=== PATIENT | male | born 1935 | race Caucasian/White ===

== ENCOUNTER 2018-06-01 18:02 | Emergency (ER) | payer MEDICARE, OTHER ==
[2018-06-01 18:14] VITALS: BP 147/74
--- NOTE | 2018-06-01 18:47 | EDM.PDOC ---
ED HPI GENERAL MEDICAL PROBLEM - General Chief Complaint: ENT Problem Stated Complaint: INFECTION IN MOUTH/EYES Time Seen by Provider: 06/01/18 18:47 Source of Information: Reports: Patient, Family (son) History Limitations: Reports: No Limitations - History of Present Illness INITIAL COMMENTS - FREE TEXT/NARRATIVE: 83-year-old male presents with his son for evaluation and treatment of a sore throat. Patient is very hard of hearing, history primarily obtained from his son. Reports the symptoms have been going on for about the last 3-4 days. Presented to the walk in clinic Saturday. Prescribed clindamycin and nystatin. Has been taking this as prescribed but symptoms seem to be Worsening. Reports the symptoms initially started with a white spot to the throat. This area has increased in size. He is now experiencing pain to the throat. He is also complaining of pain and swelling to the right cheek extending behind his right ear and under his right eye. He has bilateral increased tear production and purulent discharge from the eyes with mattering to the lids. He reports associated symptoms of a headache and a decreased appetite. He also reports chills and malaise. No documented fever. He denies any cough, nausea or vomiting. Patient is not a diabetic. Duration: Day(s): (3-4) Location: Reports: Face Right Face Pain Score (Numeric/FACES): 8 - Related Data Allergies Allergy/AdvReac Type Severity Reaction Status Date / Time Iodinated Contrast- Oral and Allergy Hives Verified 06/01/18 18:20 IV Dye Penicillins Allergy Rash Verified 06/01/18 18:20 Home Meds: Home Meds Aspirin [Children's Aspirin] 1 tab PO DAILY 11/15/16 [History] Bisoprolol Fumarate/HCTZ [Bisoprolol-Hctz 5-6.25 mg Tab] 1 tab PO DAILY [History] Cholecalciferol (Vitamin D3) [Vitamin D] 1 tab PO DAILY 11/15/16 [History] Furosemide 1 tab PO DAILY 11/15/16 [History] Multivitamin [Multivitamins] 1 tab PO DAILY 11/15/16 [History] Psyllium Husk (With Sugar) [Metamucil Powder] 1 dose PO TID PRN 11/15/16 [ History] Tamsulosin HCl 1 cap PO DAILY 02/16/17 [History] Triamcinolone Acetonide [Triamcinolone Acetonide 0.1% Crm] 1 applic TOP BID PRN 11/15/16 [History] Lidocaine 2% [Xylocaine 2% Viscous] 15 ml .XX Q4HR PRN #300 ml 06/01/18 [Rx] valACYclovir [Valtrex] 1,000 mg PO Q8HR #26 tablet 06/01/18 [Rx] Past Medical History HEENT History: Reports: Hard of Hearing, Other (See Below) Other HEENT History: brain aneursym Cardiovascular History: Reports: Hypertension Other Cardiovascular History: water retention Respiratory History: Reports: None Gastrointestinal History: Reports: Cholelithiasis, Other (See Below) Other Gastrointestinal History: Hepatitis A, gallstone Genitourinary History: Reports: Prostate Disorder 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 Musculoskeletal History: Reports: Osteoarthritis, Other (See Below) Other Musculoskeletal History: knee pain Neurological History: Reports: None Psychiatric History: Reports: None Endocrine/Metabolic History: Reports: Obesity/BMI 30+, Other (See Below) Other Endocrine/Metabolic History: knee replacements bilateral, hand surgery Hematologic History: Reports: None Immunologic History: Reports: None Oncologic (Cancer) History: Reports: Prostate Dermatologic History: Reports: None - Past Surgical History GI Surgical History: Reports: Cholecystectomy, Colonoscopy, Hernia, Inguinal Musculoskeletal Surgical History: Reports: Knee Replacement, Other (See Below) Social & Family History - Tobacco Use Used Tobacco, but Quit: Yes Month/Year Tobacco Last Used: 1991 - Caffeine Use Caffeine Use: Reports: Coffee, Soda, Tea - Recreational Drug Use Recreational Drug Use: No ED ROS ENT - Review of Systems Review Of Systems: See Below Constitutional: Reports: Chills, Malaise, Decreased Appetite HEENT: Reports: Eye Discharge (bilateral), Throat Pain Respiratory: Denies: Cough Cardiovascular: Denies: Chest Pain GI/Abdominal: Reports: Decreased Appetite. Denies: Abdominal Pain, Nausea, Vomiting ED EXAM, ENT - Physical Exam Exam: See Below Exam Limited By: No Limitations General Appearance: Alert, WD/WN, No Apparent Distress Eye Exam: Right Eye: Periorbital Changes (swelling and erythema to the right lower lid), Bilateral Eye: EOMI, Normal Inspection, PERRL Ears: Normal External Exam, Normal Canal, Hearing Grossly Normal, Normal TMs Nose: Normal Inspection Mouth/Throat: Other (lesions to the right posterior oropharynx, is not easliy removable with the tongue blade, erythematous border with white/grap center) Head: Facial Tenderness (right face, zygomatic process) Neck: Normal Inspection. No: Lymphadenopathy (L), Lymphadenopathy (R) Respiratory/Chest: No Respiratory Distress, Lungs Clear, Normal Breath Sounds Cardiovascular: Regular Rate, Rhythm, Systolic Murmur (grade 3 systolice heart murmur) GI/Abdominal: Soft, Non-Tender Neurological: Alert, Oriented, Normal Cognition Psychiatric: Normal Affect, Normal Mood Skin: Warm, Dry, Normal Color, Erythema (right cheek ), Other (no lesions to the right face appreciated) ED EYE PROCEDURE - Eye Procedure Alcaine Drops Administered: Yes Course - Vital Signs Last Recorded V/S: Last Vital Signs Temp 98.0 F 06/01/18 18:13 Pulse 77 06/01/18 18:13 Resp 20 06/01/18 18:13 BP 147/74 H 06/01/18 18:13 Pulse Ox 96 06/01/18 18:13 - Orders/Labs/Meds Orders: Active Orders 24 hr Category Date Time Status Slit Lamp to Bedside [RC] ASDIRECTED Care 06/01/18 19:50 Active Labs: Laboratory Tests 06/01/18 06/01/18 Range/Units 19:20 19:20 WBC 5.55 (4.23-9.07) K/mm3 RBC 4.13 L (4.63-6.08) M/mm3 Hgb 13.4 L (13.7-17.5) gm/L Hct 40.7 (40.1-51.0) % MCV 98.5 H (79.0-92.2) fl MCH 32.4 H (25.7-32.2) pg MCHC 32.9 (32.2-35.5) g/dl RDW Std Deviation 47.5 H (35.1-43.9) fL Plt Count 205 (163-337) K/mm3 MPV 11.3 (9.4-12.3) fl Neutrophils % (Manual) 75 H (40-60) % Band Neutrophils % 0 (0-10) % Lymphocytes % (Manual) 23 (20-40) % Atypical Lymphs % 0 % Monocytes % (Manual) 1 L (2-10) % Eosinophils % (Manual) 1 (0.8-7.0) % Basophils % (Manual) 0 L (0.2-1.2) Platelet Estimate Adequate RBC Morph Comment Normal Sodium 140 (136-145) mEq/L Potassium 3.6 (3.5-5.1) mEq/L Chloride 106 (98-107) mEq/L Carbon Dioxide 27 (21-32) mEq/L Anion Gap 10.6 (5-15) BUN 18 (7-18) mg/dL Creatinine 1.4 H (0.7-1.3) mg/dL Est Cr Clr Drug Dosing 44.85 mL/min Estimated GFR (MDRD) 48 (>60) mL/min BUN/Creatinine Ratio 12.9 L (14-18) Glucose 107 (83-115) mg/dL Calcium 8.7 (8.5-10.1) mg/dL Total Bilirubin 0.5 (0.2-1.0) mg/dL AST 18 (15-37) U/L ALT 17 (16-63) U/L Alkaline Phosphatase 96 (46-116) U/L C-Reactive Protein 1.1 H* (<1.0) mg/dL Total Protein 6.8 (6.4-8.2) g/dl Albumin 3.5 (3.4-5.0) g/dl Globulin 3.3 gm/dL Albumin/Globulin Ratio 1.1 (1-2) Meds: Medications Discontinued Medications Generic Name Dose Route Start Last Admin Trade Name Freq PRN Reason Stop Dose Admin Fluorescein Sodium 0.6 mg 06/01/18 20:03 06/01/18 20:23 Ful-Brunilda EYEBOTH 06/01/18 20:04 0.6 mg ONETIME ONE Administration Polymyxin/Trimethoprim Sulfate 1 ml 06/01/18 20:57 06/01/18 21:20 Polytrim Ophth Soln EYEBOTH 06/01/18 20:58 Not Given ONETIME ONE Valacyclovir HCl 1,000 mg 06/01/18 21:00 06/01/18 21:20 Valtrex PO Not Given DAILY BRYAN Valacyclovir HCl 1,000 mg 06/01/18 21:00 06/01/18 21:20 Valtrex PO Not Given DAILY BRYAN Valacyclovir HCl Confirm 06/01/18 21:16 06/01/18 21:19 Valtrex Administered 06/01/18 21:17 Not Given Dose 2,000 mg .ROUTE .STK-MED ONE Valacyclovir HCl 1,000 mg 06/01/18 21:19 06/01/18 21:22 Valtrex PO 1,000 mg DAILY BRYAN Administration Valacyclovir HCl 1,000 mg 06/01/18 21:18 06/01/18 21:22 Valtrex PO 06/01/18 21:19 1,000 mg ONETIME ONE Administration - Re-Assessments/Exams Free Text/Narrative Re-Assessment/Exam: 06/01/18 20:[address] Manzanares to see the patient. Agrees this is consistent with shingles. I reviewed the labs with the patient. No imaging indicated today. Slit lamp exam reveals no lesions in the eyes. Negative Hutchington's sign. Will discharge home with lidocaine for pain relief. Valtrex for the shingles and polytrim for suspected conjunctivitis. Close follow-up in the clinic. Discharge instructions as documented. Departure - Departure Time of Disposition: 20:45 Disposition: Home, Self-Care 01 Condition: Fair Clinical Impression: Shingles - Discharge Information *PRESCRIPTION DRUG MONITORING PROGRAM REVIEWED*: No *COPY OF PRESCRIPTION DRUG MONITORING REPORT IN PATIENT MARSHALL: No Prescriptions: Lidocaine 2% [Xylocaine 2% Viscous] 15 ml .XX Q4HR PRN #300 ml PRN Reason: Pain valACYclovir [Valtrex] 1,000 mg PO Q8HR #26 tablet Instructions: Shingles, [id number] Referrals: Froylan Pino MD [Primary Care Provider] - Forms: ED Department Discharge Additional Instructions: You may stop the clindamycin and the nystatin prescribed by the clinic. [facility] ( in [place]) is open 1pm to 3pm tomorrow. Start the valtrex 1 cap PO tid x 7 days. Start the polytrim eye drops to the bilateral eyes tid x 7 days. OTC tylenol or motrin as needed for pain. Mouthwash (lidocaine) 15mls every 4-6 hours prn pain. Gargle, swallow or spit. Follow-up with your PCP this week and you eye doctor this week. Please let them know you were seen in the ED this weekend and were diagnosed with shingles. Please let them know the shingles is on your face and close follow-up in the clinic and with your eye doctor this week is recommended. Make sure you are drinking plenty of fluids and eating a healthy diet. Please return to the ER should your symptoms change or worsen. - My Orders Last 24 Hours: My Active Orders 06/01/18 19:50 Slit Lamp to Bedside [RC] ASDIRECTED - Assessment/Plan Last 24 Hours: My Active Orders 06/01/18 19:50 Slit Lamp to Bedside [RC] ASDIRECTED
[2018-06-01] MEDS ORDERED: Fluorescein 0.6 MG Ophth Strip EYEBOTH ONE (20:03)
[2018-06-01] MEDS ORDERED: Polymyxin B/Trimethoprim 10 ML Bottle EYEBOTH ONE (20:57)
[2018-06-01] MEDS ORDERED: valACYclovir 1,000 MG Tab PO SCH ×2 (21:00)
[2018-06-01] MEDS ORDERED: valACYclovir 500 MG Tab ONE (21:16)
[2018-06-01] MEDS ORDERED: valACYclovir 500 MG Tab PO ONE (21:18)
[2018-06-01] MEDS ORDERED: valACYclovir 500 MG Tab PO SCH (21:19)
== END 2018-06-01 21:25 | disposition home or self-care (01) ==
LOC: JD.ED 18:02
DX: B02.9 Zoster without complications (principal); I10 Essential (primary) hypertension; Z88.0 Allergy status to penicillin; Z87.891 Personal history of nicotine dependence
CPT/HCPCS: 36415; 80053; 85007; 85027; 86140; 99283; A9270

== ENCOUNTER 2020-01-11 16:03 | Emergency (ER) | payer MEDICARE, OTHER ==
--- NOTE | 2020-01-11 16:50 | EDM.PDOC ---
ED HPI GENERAL MEDICAL PROBLEM - General Chief Complaint: Skin Complaint Stated Complaint: HAND PAIN Time Seen by Provider: 01/11/20 16:05 Source of Information: Reports: Patient History Limitations: Reports: No Limitations - History of Present Illness INITIAL COMMENTS - FREE TEXT/NARRATIVE: Patient is an 84-year-old male who presents to the ER with complaints of right hand redness, pain, and swelling. He states it began "out of nowhere "about 3 days ago. He states he has been taking ibuprofen intermittently for the pain. He has not had any fever, chills, nausea, or vomiting associated with this. He denies a known history of gout. Denies any open wounds to the area, however states he was sick with a "cold "about a week ago and he thinks it may be associated with that. 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 Left Hand Pain Score (Numeric/FACES): 10 - Related Data Allergies Allergy/AdvReac Type Severity Reaction Status Date / Time Iodinated Contrast Media Allergy Hives Verified 01/11/20 16:19 [Iodinated Contrast- Oral and IV Dye] Penicillins Allergy Rash Verified 01/11/20 16:19 Home Meds: Home Meds Aspirin [Children's Aspirin] 1 tab PO DAILY 11/15/16 [History] Bisoprolol/Hydrochlorothiazide [Bisoprolol-Hctz 5-6.25 mg Tab] 1 tab PO DAILY [History] Cholecalciferol (Vitamin D3) [Vitamin D] 1 tab PO DAILY 11/15/16 [History] Furosemide 1 tab PO DAILY 11/15/16 [History] Multivitamin [Multivitamins] 1 tab PO DAILY 11/15/16 [History] Psyllium Husk (With Sugar) [Metamucil Powder] 1 dose PO TID PRN 11/15/16 [ History] Tamsulosin HCl 1 cap PO DAILY 11/15/16 [History] Triamcinolone Acetonide [Triamcinolone Acetonide 0.1% Crm] 1 applic TOP BID PRN 11/15/16 [History] Lidocaine 2% [Xylocaine 2% Viscous] 15 ml .XX Q4HR PRN #300 ml 06/01/18 [Rx] valACYclovir [Valtrex] 1,000 mg PO Q8HR #26 tablet 06/01/18 [Rx] cephALEXin [Keflex] 500 mg PO Q6H #19 cap 01/11/20 [Rx] predniSONE [Prednisone] 20 mg PO BID 5 Days #9 tablet 01/11/20 [Rx] Past Medical History HEENT History: Reports: Hard of Hearing, Other (See Below) Other HEENT History: brain aneursym Cardiovascular History: Reports: Hypertension Other Cardiovascular History: water retention Respiratory History: Reports: None Gastrointestinal History: Reports: Cholelithiasis, Other (See Below) Other Gastrointestinal History: Hepatitis A, gallstone Genitourinary History: Reports: Prostate Disorder 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 Musculoskeletal History: Reports: Osteoarthritis, Other (See Below) Other Musculoskeletal History: knee pain Neurological History: Reports: None Psychiatric History: Reports: None Endocrine/Metabolic History: Reports: Obesity/BMI 30+, Other (See Below) Other Endocrine/Metabolic History: knee replacements bilateral, hand surgery Hematologic History: Reports: None Immunologic History: Reports: None Oncologic (Cancer) History: Reports: Prostate Dermatologic History: Reports: None - Past Surgical History GI Surgical History: Reports: Cholecystectomy, Colonoscopy, Hernia, Inguinal Musculoskeletal Surgical History: Reports: Knee Replacement, Other (See Below) Social & Family History - Tobacco Use Smoking Status *Q: Never Smoker - Caffeine Use Caffeine Use: Reports: Soda - Recreational Drug Use Recreational Drug Use: No ED ROS GENERAL - Review of Systems Review Of Systems: See Below Constitutional: Reports: No Symptoms. Denies: Fever, Chills, Weakness HEENT: Reports: No Symptoms Respiratory: Reports: No Symptoms Cardiovascular: Reports: No Symptoms Endocrine: Reports: No Symptoms GI/Abdominal: Reports: No Symptoms. Denies: Nausea, Vomiting : Reports: No Symptoms Musculoskeletal: Reports: No Symptoms Skin: Reports: Erythema Neurological: Reports: No Symptoms. Denies: Confusion, Dizziness Psychiatric: Reports: No Symptoms Hematologic/Lymphatic: Reports: No Symptoms Immunologic: Reports: No Symptoms ED EXAM, SKIN/RASH Exam: See Below Exam Limited By: No Limitations General Appearance: Alert, WD/WN, No Apparent Distress Respiratory/Chest: No Respiratory Distress, Lungs Clear, Normal Breath Sounds, No Accessory Muscle Use, Chest Non-Tender Cardiovascular: Normal Peripheral Pulses, Regular Rate, Rhythm, No Edema, No Gallop, No JVD, No Murmur, No Rub Skin: Other (Erythema/edema/warmth to the dorsal aspect of the left hand. ) Course - Vital Signs Last Recorded V/S: Last Vital Signs Temp 97.5 F 01/11/20 16:13 Pulse 80 01/11/20 16:13 Resp 22 H 01/11/20 16:13 BP 145/68 H 01/11/20 16:13 Pulse Ox 97 01/11/20 16:13 - Orders/Labs/Meds Labs: Laboratory Tests 01/11/20 01/11/20 01/11/20 Range/Units 16:41 16:41 16:41 WBC 9.88 H (4.23-9.07) K/mm3 RBC 3.87 L (4.63-6.08) M/mm3 Hgb 12.3 L (13.7-17.5) gm/dl Hct 37.8 L (40.1-51.0) % MCV 97.7 H (79.0-92.2) fl MCH 31.8 (25.7-32.2) pg MCHC 32.5 (32.2-35.5) g/dl RDW Std Deviation 45.7 H (35.1-43.9) fL Plt Count 267 (163-337) K/mm3 MPV 12.3 (9.4-12.3) fl Neut % (Auto) 81.4 H (34.0-67.9) % Lymph % (Auto) 8.6 L (21.8-53.1) % [place] % (Auto) 8.9 (5.3-12.2) % Eos % (Auto) 0.5 L (0.8-7.0) Baso % (Auto) 0.3 (0.1-1.2) % Neut # (Auto) 8.04 H (1.78-5.38) K/mm3 Lymph # (Auto) 0.85 L (1.32-3.57) K/mm3 [place] # (Auto) 0.88 H (0.30-0.82) K/mm3 Eos # (Auto) 0.05 (0.04-0.54) K/mm3 Baso # (Auto) 0.03 (0.01-0.08) K/mm3 Manual Slide Review Abnormal smear Sodium 137 (136-145) mEq/L Potassium 3.1 L (3.5-5.1) mEq/L Chloride 102 (98-107) mEq/L Carbon Dioxide 23 (21-32) mEq/L Anion Gap 15.1 H (5-15) BUN 17 (7-18) mg/dL Creatinine 1.2 (0.7-1.3) mg/dL Est Cr Clr Drug Dosing 47.06 mL/min Estimated GFR (MDRD) 57 (>60) mL/min BUN/Creatinine Ratio 14.2 (14-18) Glucose 137 H (83-115) mg/dL Uric Acid 3.2 L (3.5-7.2) mg/dL Calcium 9.2 (8.5-10.1) mg/dL Total Bilirubin 0.3 (0.2-1.0) mg/dL AST 16 (15-37) U/L ALT 19 (16-63) U/L Alkaline Phosphatase 79 (46-116) U/L C-Reactive Protein 9.6 H* (<1.0) mg/dL Total Protein 7.0 (6.4-8.2) g/dl Albumin 3.2 L (3.4-5.0) g/dl Globulin 3.8 gm/dL Albumin/Globulin Ratio 0.8 L (1-2) Meds: Medications Discontinued Medications Generic Name Dose Route Start Last Admin Trade Name Freq PRN Reason Stop Dose Admin Acetaminophen 975 mg 01/11/20 17:42 01/11/20 17:57 Tylenol PO 01/11/20 17:43 975 mg NOW ONE Administration Cephalexin 500 mg 01/11/20 17:47 01/11/20 17:57 Keflex PO 01/11/20 17:48 500 mg ONETIME ONE Administration Prednisone 20 mg 01/11/20 17:42 01/11/20 17:57 Prednisone PO 01/11/20 17:43 20 mg ONETIME ONE Administration - Re-Assessments/Exams Free Text/Narrative Re-Assessment/Exam: 01/11/20 18:08 Hematology shows a slightly elevated WBC at 9.88, CRP slightly elevated at 9.6, uric acid low at 3.2. X-ray of the hand shows some soft tissue swelling and degenerative changes. Patient has been afebrile and denies any nausea, vomiting , or chills. Differential diagnoses is gout versus cellulitis. The extremity does have the appearance of gout, however patient has no history of gout. He does have a history of cellulitis. Based on this, I am going to cover him for cellulitis with Keflex, as well as start prednisone. Discussed with the patient that I would like him to follow-up in the clinic in 2 to 3 days to monitor the symptoms. The area of erythema was marked with a skin marker. The patient also has a picture of the hand on his phone to monitor for improvement or worsening symptoms. Discussed that if he finds it is getting worse instead of better I would want him to return to the emergency department. He is in agreement with this plan. I did speak with the patient's son, Jurgen, and explained this plan. He verbalized understanding and is in agreement with the plan as well. Discharge instructions as documented. Departure - Departure Time of Disposition: 17:57 Disposition: Home, Self-Care 01 Condition: Fair Clinical Impression: Hand pain, left Cellulitis Qualifiers: Site of cellulitis: extremity Site of cellulitis of extremity: upper extremity Laterality: left Qualified Code(s): L03.114 - Cellulitis of left upper limb - Discharge Information *PRESCRIPTION DRUG MONITORING PROGRAM REVIEWED*: No *COPY OF PRESCRIPTION DRUG MONITORING REPORT IN PATIENT MARSHALL: No Prescriptions: cephALEXin [Keflex] 500 mg PO Q6H #19 cap predniSONE [Prednisone] 20 mg PO BID 5 Days #9 tablet Instructions: Cellulitis, Adult Referrals: Cara Curry NP [Primary Care Provider] - Froylan Pino MD [Physician] - Forms: ED Department Discharge Additional Instructions: You were seen in the emergency department today for left hand pain and swelling that began about 3 days ago. Your work-up included blood work and an x-ray of your left hand. Your work-up was overall normal. As we discussed, there is a possibility that this could be related to gout, however with your history of skin infections we are going to treat you for both. You have been started on Keflex and prednisone. Take these medications as prescribed. You may use Tylenol 1000 mg every 6 hours as needed for pain. You may apply ice over the hand intermittently. Do not apply ice directly to the skin however. I would like you to follow-up in the clinic in 2 to 3 days for a recheck to ensure that this is getting better and not worse. If you should develop any worsening symptoms such as a fever, nausea, vomiting, or any other symptoms of concern, we would like you to return to the emergency department. Sepsis Event Note - Evaluation Sepsis Screening Result: No Definite Risk - Focused Exam Vital Signs: Vital Signs Temp Pulse Resp BP Pulse Ox 01/11/20 16:13 97.5 F 80 22 H 145/68 H 97 Date Exam was Performed: 01/11/20 Time Exam was Performed: 18:19
--- NOTE | 2020-01-11 17:19 | CR ---
Left hand: 4 views left hand were obtained. Comparison: No previous study is available. Fairly severe degenerative change is noted within the CMC joint of the thumb. Joint space narrowing is noted within the second and third MCP joints. Diffuse joint space narrowing is noted within the DIP and PIP joints. Bony structures are osteopenic. Joint space narrowing is noted between the radius and navicular bone. No acute fracture or other bony abnormality is appreciated. Impression: 1. Diffuse degenerative change. 2. Soft tissue swelling. 3. Nothing acute is otherwise seen. Diagnostic code #3 Study was dictated in MDT
[2020-01-11] MEDS ORDERED: predniSONE 20 MG Tab PO ONE (17:42)
[2020-01-11] MEDS ORDERED: Acetaminophen 325 MG Tab PO ONE (17:42)
[2020-01-11] MEDS ORDERED: Cephalexin 500 MG Cap PO ONE (17:47)
[2020-01-11 18:20] VITALS: BP 111/80; PULSE 82
== END 2020-01-11 18:15 | disposition home or self-care (01) ==
LOC: JD.ED 16:03
DX: L03.114 Cellulitis of left upper limb (principal); I10 Essential (primary) hypertension; M19.90 Unspecified osteoarthritis, unspecified site; Z79.82 Long term (current) use of aspirin; E66.9 Obesity, unspecified; Z68.37 Body mass index [BMI] 37.0-37.9, adult; Z88.0 Allergy status to penicillin; Z91.041 Radiographic dye allergy status
CPT/HCPCS: 36415; 73130; 80053; 84550; 85025; 86140; 99283; A9270